=== PATIENT | male | born 1975 | race Caucasian/White ===

== ENCOUNTER 2018-04-16 06:52 | Day surgery (SDC) | payer BC ==
[~2018-04-16 06:52] MED LIST: Buffered Lidocaine 0.9% SYRIN* 5 ML/SYR SYRINGE INTRADERM ONE; Dexamethasone IV* 4 MG/ML 1 ML (4 MG) IV SLOW PU ONE; Famotidine IV* 10 MG/ML 2 ML (20 mg) IV ONE
[2018-04-16] MEDS ORDERED: ceFAZolin 2 GM PREMIX (*) 2 GM/50 ML BAG IVPB ONE (06:57)
[2018-04-16] MEDS ORDERED: Dexamethasone IV* 4 MG/ML 1 ML (4 MG) ONE (06:57)
[2018-04-16] MEDS ORDERED: Famotidine IV* 10 MG/ML 2 ML (20 mg) ONE (06:57)
[2018-04-16] MEDS ORDERED: fentaNYL* 50 MCG/ML 2 ML VIAL (100 MCG VIAL) ONE ×2 (08:48→10:47)
[2018-04-16] MEDS ORDERED: Lidocaine 2% PF * 5 ML VIAL ONE (08:48)
[2018-04-16] MEDS ORDERED: Midazolam* 1 MG/ML 5 ML VIAL (5 MG) ONE (08:48)
[2018-04-16] MEDS ORDERED: Propofol* 10 MG/ML 20 ML BTL IV PUSH ONE (08:48)
[2018-04-16] MEDS ORDERED: Ketorolac INJ* 30 MG/ML 1 ML VIAL ONE (09:06)
[2018-04-16] MEDS ORDERED: Phenylephrine IV* 40 MCG/ML 10 ML SYRINGE ONE (09:30)
[2018-04-16] MEDS ORDERED: EPHEDrine (Pressors)* 50 MG/ML VIAL ONE (09:47)
[2018-04-16] MEDS ORDERED: Ondansetron INJ* 2 MG/ML VIAL ONE (10:00)
[2018-04-16] MEDS ORDERED: oxyCODONE/Acetamin 5/325 MG* TAB PO PRN (10:45)
[2018-04-16] MEDS ORDERED: HYDROcodone/ACETAMIN 5-325 MG* 1 TAB PO PRN (10:45)
[2018-04-16] MEDS ORDERED: Naloxone* 0.4 MG/ML 1 ML VIAL IV PRN (10:45)
[2018-04-16] MEDS ORDERED: DiMENhydriNATE IV* 50 MG/ML VIAL IV PUSH PRN (10:45)
[2018-04-16] MEDS ORDERED: HYDROcodone/ACETAMIN 5-325 MG* 1 TAB ONE (10:47)
[2018-04-16] MEDS: fentaNYL* 50 MCG/ML 2 ML VIAL (100 MCG VIAL) IV PRN ×2 (10:51→11:03)
[2018-04-16 11:39] VITALS: BP 120/80
--- NOTE | 2018-04-16 15:02 | OP ---
OPERATIVE REPORT: DATE OF OPERATION: 04/16/18 - SDS DATE OF : 77 SURGEON: Serjio Cunningham MD CONTRACT ADMINISTRATIVE ASSISTANT: BE Longo An advertising assistant manager was needed for the procedure to aid in positioning of the arm and retraction. ANESTHESIOLOGIST: Dr. Henry ANESTHESIA: General. PRE-OP DIAGNOSIS: Left thumb displaced ulnar collateral ligament avulsion fracture of the metacarpophalangeal joint. POST-OP DIAGNOSIS: Left thumb displaced ulnar collateral ligament avulsion fracture of the metacarpophalangeal joint. OPERATIVE PROCEDURE: Open reduction internal fixation of left intraarticular metacarpophalangeal joint proximal phalanx ulnar collateral ligament avulsion fracture with Synthes 1.3 mm screw of the variable angle handset. INDICATIONS: Hector had the displaced fracture. We talked about his options, I recommended surgical intervention due to the amount of displacement in order to give him a stable thumb, he had wanted to proceed with surgery. ESTIMATED BLOOD LOSS: 2 mL. COMPLICATIONS: None. FINDINGS: See above and below. DESCRIPTION OF PROCEDURE: Hector was seen in preoperative area. The correct site, side, and procedure were identified. We came back to the operating room, the arm was prepped and draped in the usual fashion. A time-out was performed. The arm was exsanguinated with an Esmarch and the tourniquet inflated to 250 mmHg. I made a curvilinear incision over the ulnar aspect of the MCP joint, full thickness flaps were raised of the adductor aponeurosis, this was incised and retracted palmarly and dorsally. The fracture fragment was identified. The soft tissue around the fracture fragment was removed as was the fracture hematoma was excised, it was removed. The cortical edges were visualized. The fracture was reduced and pin in placed with 1.08 mm K-wire. I then drilled with a 1.0 mm drill and placed a 1.3 mm screw. Excellent position of the fragment was noted. I had compressed the fragment prior to placing the screw in order to get some compression across the fracture site. I then brought in the mini C-arm imaging, this looked very nice. The stability was checked gently and it was nice and stable both 0 and 30 degrees. Everything was looking good, so I closed the adductor aponeurosis with 4-0 Ethibond suture. The skin was closed with 4-0 nylon. Wound were dressed. Ropivacaine was infiltrated in the jesusita-incisional area. A thumb spica splint was placed protecting against any abduction movement on the thumb. He was then woken up and taken to the recovery room in stable condition. [id number]/[facility] #: [id number] MTDD
--- NOTE | 2018-04-17 06:57 | RAD ---
INDICATION: Left thumb metacarpal phalangeal joint ulnar collateral ligament repair. COMPARISON: Comparison is made with a prior x-ray study of the thumb from April 09, 2018. TECHNIQUE: 6 seconds of intermittent fluoroscopic guidance were provided and 3 spot films of the left thumb were obtained in the operating room. FINDINGS: There is a single screw transfixing the previously noted avulsion fracture fragment at the medial base of the first proximal phalanx. The bones are in normal alignment. IMPRESSION: INTRAOPERATIVE CONTROL FILMS. CPT II Codes: G9500
== END 2018-04-16 11:40 | disposition home or self-care (01) ==
LOC: OR 06:52
PROVIDERS: ATTEND Orthopaedic Surgery Hand Surgery
DX: S62.512A Displaced fracture of proximal phalanx of left thumb, initial encounter for closed fracture (principal); W18.39XA Other fall on same level, initial encounter; Y93.64 Activity, baseball; Y92.320 Baseball field as the place of occurrence of the external cause; K21.9 Gastro-esophageal reflux disease without esophagitis; F43.10 Post-traumatic stress disorder, unspecified; F41.8 Other specified anxiety disorders
CPT/HCPCS: 76001; J0690; J1100; J1885; J2250; J2405; J2704; J3010

== ENCOUNTER 2018-11-08 10:25 | Emergency (ER) | payer BC ==
[2018-11-08 10:35] VITALS: BP 106/71
--- NOTE | 2018-11-08 10:53 | UC ---
Throat Pain/Nasal Arn[place]fo HPI - HPI Summary HPI Summary: Started w/ sore throat 3 days ago w/ no sick contacts. Denies any other symptoms. nothing makes it better/worse. - History of Current Complaint Chief Complaint: UCGeneralIllness Stated Complaint: SORE THROAT Time Seen by Provider: 11/08/18 10:44 Hx Obtained From: Patient Pain Intensity: 2 Pain Scale Used: 0-10 Numeric Cough: None Associated Signs & Symptoms: Negative: Dysphagia, Wheezing, Hoarseness, Sinus Discomfort, Vomiting, Rash - Allergies/Home Medications Allergies/Adverse Reactions: Allergies Allergy/AdvReac Type Severity Reaction Status Date / Time No Known Allergies Allergy Verified 11/08/18 10:35 PMH/Surg Hx/FS Hx/Imm Hx Previously Healthy: Yes - Surgical History Surgical History: Yes Surgery Procedure, Year, and Place: Elbow 2013 - Social History Alcohol Use: Occasionally Substance Use Type: None Smoking Status (MU): Never Smoked Tobacco - Immunization History Most Recent Tetanus Shot: more than 5 yrs Review of Systems All Other Systems Reviewed And Are Negative: Yes Constitutional: Negative: Fever, Chills, Fatigue Skin: Negative: Rash ENT: Positive: Sore Throat. Negative: Sinus Congestion Respiratory: Negative: Cough Neurological: Negative: Headache Physical Exam Triage Information Reviewed: Yes Appearance: Well-Appearing Vital Signs: Initial Vital Signs Temp 98.4 F 11/08/18 10:33 Pulse 58 11/08/18 10:33 Resp 16 11/08/18 10:33 BP 106/71 11/08/18 10:33 Pulse Ox 100 11/08/18 10:33 Eyes: Positive: Conjunctiva Clear ENT: Positive: Pharyngeal erythema, TMs normal, Uvula midline. Negative: Tonsillar swelling, Tonsillar exudate, Hoarse voice Neck exam: Normal Neck: Negative: Nuchal Rigidity Respiratory Exam: Normal Cardiovascular Exam: Normal Skin: Negative: Rashes Throat Pain/Nasal Course/Dx - Course Assessment/Plan: Viral etiology. rapid strep negative. no other symptoms or sick contacts. comfort measures for treatment. afebrile and good vitals. - Differential Dx/Diagnosis Provider Diagnosis: Viral pharyngitis Discharge - Sign-Out/Discharge Documenting (check all that apply): Patient Departure All imaging exams completed and their final reports reviewed: No Studies - Discharge Plan Condition: Good Disposition: HOME Patient Education Materials: Pharyngitis (ED) Referrals: Roberth Guerrero MD [Primary Care Provider] - Additional Instructions: I am sending the rapid strep for culture and we can call if it is positive. for now ok to take over the counter meds. - Billing Disposition and Condition Condition: GOOD Disposition: Home
== END 2018-11-08 11:07 | disposition home or self-care (01) ==
LOC: UCEAST 10:25
DX: J02.9 Acute pharyngitis, unspecified (principal)
CPT/HCPCS: 87070; 87651; 99211; G0463